=== PATIENT | female | born 1955 | race American Indian/Alaskan Native ===

== ENCOUNTER 2016-11-03 18:24 | Emergency (ER) | payer MEDICARE ==
[2016-11-03 19:55] VITALS: BP 162/97
[2016-11-04] MEDS ORDERED: TYLENOL #3 PO ONE (00:11)
--- NOTE | 2016-11-04 00:25 | Emergency Department Report ---
- General Chief Complaint: Upper Respiratory Infection Stated Complaint: ASTHMA/COLD SYMPTOMS/DIZZINESS Source: patient Mode of arrival: Ambulatory Limitations: No Limitations - History of Present Illness Initial Comments: 61-year-old female with a past medical history of hypertension comes in for complaint of cough for 2 weeks that's been nonproductive. She denies any fever no nausea no vomiting no diarrhea she does complain of upper to middle back pain which she takes a deep breath. She complains of nasal congestion longer has a sore throat. MD Complaint: cough, rhinorrhea, nasal congestion - Related Data Previous Rx's Medication Instructions Recorded Last Taken Type Azithromycin [Zithromax] 250 mg PO QDAY #6 tablet 11/04/16 Unknown Rx Promethazine /Codeine 5 ml PO Q6H PRN #100 ml 11/04/16 Unknown Rx [Phenergan/Codeine 6.25-10 mg/5 ml] Allergies Allergy/AdvReac Type Severity Reaction Status Date / Time lentils Allergy Shortness Verified 11/03/16 19:49 of Breath ED Review of Systems ROS: Stated complaint: ASTHMA/COLD SYMPTOMS/DIZZINESS Other details as noted in HPI Constitutional: denies: chills, fever ENT: throat pain (1 week ago) Respiratory: cough (nonproductive) Cardiovascular: denies: chest pain, palpitations Gastrointestinal: denies: nausea, vomiting, diarrhea Genitourinary: denies: dysuria ED Past Medical Hx - Past Medical History Previous Medical History?: Yes Hx Hypertension: Yes Hx Asthma: Yes - Surgical History Past Surgical History?: Yes Additional Surgical History: LEFT WRIST / C SECTION - Medications Home Medications: Home Medications Medication Instructions Recorded Confirmed Last Taken Type Azithromycin [Zithromax] 250 mg PO QDAY #6 tablet 11/04/16 Unknown Rx Promethazine /Codeine 5 ml PO Q6H PRN #100 ml 11/04/16 Unknown Rx [Phenergan/Codeine 6.25-10 mg/5 ml] ED Physical Exam - General Limitations: No Limitations General appearance: alert, in no apparent distress - Head Head exam: Present: atraumatic, normocephalic - Eye Eye exam: Present: normal appearance, PERRL, EOMI - ENT ENT exam: Present: mucous membranes moist, TM's normal bilaterally - Neck Neck exam: Present: normal inspection - Respiratory Respiratory exam: Present: normal lung sounds bilaterally, other (right posterior pain when patient took a deep breath.) - Cardiovascular Cardiovascular Exam: Present: regular rate, normal rhythm, normal heart sounds - Extremities Exam Extremities exam: Absent: pedal edema ED Course Vital Signs 11/03/16 19:49 Temperature 99.1 F Pulse Rate 109 H Respiratory 22 Rate Blood Pressure 162/97 O2 Sat by Pulse 99 Oximetry ED Medical Decision Making - Radiology Data Radiology results: image reviewed FINAL REPORT PROCEDURE: XR CHEST ROUTINE 2V TECHNIQUE: PA and lateral chest radiographs were obtained. CPT 32207 HISTORY: cough with puritic pain COMPARISON: No prior studies are available for comparison. FINDINGS: Heart: Normal. Mediastinum/Vessels: Normal. Lungs/Pleural space: Normal. Bony thorax: No acute osseous abnormality. Other: IMPRESSION: Normal examination. - Medical Decision Making Patient's been evaluated by this provider in fast track. We will order a chest x-ray A Tylenol 3 for pruritic pain in the chest and back. We will discharge patient on a Z-Shaka as well as promethazine with codeine. She verbalized understanding Critical care attestation.: If time is entered above; I have spent that time in minutes in the direct care of this critically ill patient, excluding procedure time. ED Disposition Clinical Impression: URI (upper respiratory infection) Qualifiers: URI type: unspecified URI Qualified Code(s): J06.9 - Acute upper respiratory infection, unspecified Disposition: DISCHARGED TO HOME OR SELFCARE Is pt being admited?: No Does the pt Need Aspirin: No Condition: Stable Instructions: Upper Respiratory Infection (ED) Additional Instructions: Complete antibiotics as prescribed. Use cough medicine on a when necessary basis. Follow up with her primary care provider within 3-5 days. Prescriptions: Azithromycin [Zithromax] 250 mg PO QDAY #6 tablet Promethazine /Codeine [Phenergan/Codeine 6.25-10 mg/5 ml] 5 ml PO Q6H PRN #100 ml PRN Reason: cough Referrals: PRIMARY CARE, [Primary Care Provider] - 3-5 Days Forms: Work/School Release Form(ED), Accompanied Note
--- NOTE | 2016-11-04 01:11 | XRay Report ---
FINAL REPORT PROCEDURE: XR CHEST ROUTINE 2V TECHNIQUE: PA and lateral chest radiographs were obtained. CPT 39073 HISTORY: cough with puritic pain COMPARISON: No prior studies are available for comparison. FINDINGS: Heart: Normal. Mediastinum/Vessels: Normal. Lungs/Pleural space: Normal. Bony thorax: No acute osseous abnormality. Other: IMPRESSION: Normal examination.
== END 2016-11-04 01:18 | disposition home or self-care (01) ==
LOC: ED 18:24
DX: J06.9 Acute upper respiratory infection, unspecified (principal); I10 Essential (primary) hypertension; J45.909 Unspecified asthma, uncomplicated; Z91.018 Allergy to other foods
CPT/HCPCS: 71020